=== PATIENT | female | born 1955 | race Caucasian/White ===

== ENCOUNTER 2024-12-08 08:15 | Outpatient (CLI) | payer MEDICAID ==
[2024-12-08 08:55] LABS: Hematocrit 40.3 % (36.0-46.0); Hemoglobin 13.5 g/dL (12.2-16.2); Mean Corpuscular Hemoglobin 30.3 pg (28.0-32.0); Mean Corpuscular Volume 90.2 fL (80.0-100.0); Nucleated Red Blood Cells % 0.0 %
[2024-12-08 09:01] LABS: Urine Protein, UAD Negative (Negative)
[2024-12-08 09:04] LABS: Alanine Aminotransferase 16 U/L (7-40); Albumin 4.1 g/dL (3.2-4.8); Anion Gap 9 (5-15); BUN/Creatinine Ratio 15.8 (10.0-20.0); Blood Urea Nitrogen 18 mg/dL (9-23); Calcium 9.4 mg/dL (8.7-10.4); Carbon Dioxide 30 mmol/L (20-31); Chloride 104 mmol/L (98-107); Cholesterol 144 mg/dL (< 200); Glucose 103 mg/dL (74-106); Magnesium 1.9 mg/dL (1.6-2.6); Potassium 3.5 mmol/L (3.5-5.1); Sodium 143 mmol/L (136-145); Total Protein 7.1 g/dL (5.7-8.2); Triglycerides 139 mg/dL (< 150)
[2024-12-08 09:05] LABS: Bilirubin, Total 1.0 mg/dL (0.2-1.0); HDL Cholesterol 42 mg/dL (40-59)
[2024-12-08 09:06] LABS: Alkaline Phosphatase 122 U/L (46-116); Iron 72.0 ug/dL (50-170)
[2024-12-08 09:09] LABS: Free T4 (Free Thyroxine) 1.37 ng/dL (0.89-1.76); Total Iron Binding Capacity 280.0 ug/dL (250-425)
[2024-12-08 09:10] LABS: Free T3 3.1 pg/mL (2.3-4.2)
[2024-12-08 10:12] LABS: Uric Acid 7.9 mg/dL (3.1-7.8)
== END 2024-12-08 17:00 | disposition home or self-care (01) ==
LOC: LAB 08:15
PROVIDERS: ATTEND Family Medicine
DX: E78.2 Mixed hyperlipidemia (principal); E78.1 Pure hyperglyceridemia; J30.2 Other seasonal allergic rhinitis; R05.3 Chronic cough
CPT/HCPCS: 36415; 80053; 80061; 80198; 81001; 82306; 82607; 83540; 83550; 83735; 84403; 84439; 84443; 84480; 84481; 84550; 85025; 87086